=== PATIENT | female | born 1975 | race African-American/Black ===

== ENCOUNTER 2020-02-05 08:30 | Inpatient (IN) | payer OTHER ==
[~2020-02-05] VITALS: Ht 170.2 cm; Wt 162.3 kg
--- NOTE | 2020-02-05 12:05 | EKG ---
[facility] [address] [place] [address] Signed Sinus tachycardia Nonspecific T wave abnormality Prolonged QT Abnormal ECG No previous ECGs available Confirmed by ARLETTE GREWAL DO ([id number]) on 02/05/2020 12:04:50 PM Electronically Signed By: ARLETTE GREWAL DO 02/05/20 1205 PATIENT NAME: YISSEL TRUONG Electrocardiogram DATE OF : 73 PHYSICIAN: ARLETTE GREWAL DO REPORT #: [id number] REPORT IS CONFIDENTIAL AND NOT TO BE RELEASED WITHOUT AUTHORIZATION
--- NOTE | 2020-02-05 15:32 | NUR ---
REPORT RECEIVED FROM ED RN PERI, PT WAS BROUGHT DOWN ON WHEELCHAIR WHILE ON OXYGEN VIA OXYMASK WITH BELONGINGS. DURING TRANSFER TO WHEELCHAIR PT SPO2 DECREASED TO 66% AND OXYGEN HAD TO BE TEMPORARILY INCREASED. PT ARRIVED TO CCU AWAKE AND ALERT WITH SOME DYSPNEA. PT WAS ABLE TO GET UP FROM WHEELCHAIR WITH MINOR ASSISTANCE AND WALK OVER TO CCU BED AND SIT AND REPOSITION ON IT. OXYGEN WAS INC PRIOR TO 10L SO NO DESATURATION OCCURED. PT NO LAYING IN BED, IV FLUIDS INFUSING ORDERED, ORDERED TYLENOL ADMINISTERED. PT CHEST PAIN FROM BREATHING HAS DEC FROM 8 TO 5 DURING THE CCU ADMISSION PROCESS. PT NOW EATING ORDERED LUNCH SLOWLY DUE TO PAIN IN STOMACH. 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 PT HOWEVER STATED THAT SHE NEVER TOOK HER PRESCRIBED MEDICATIONS FOR HER STOMACH ULCER. PT REPORTS NO FURTHER NEEDS AT THIS TIME AND IS EATING WHILE ON 2L NC. WILL CONTINUE PLAN OF CARE.
--- NOTE | 2020-02-05 16:39 | NUR ---
PATIENT HELPED UP TO BEDSIDE COMMODE TO VOID. PT GIVEN NEW PAD FOR HER UNDERWEAR SHE IS ON HER MENSES. PT VOIDS 400 ML OF DARK, BLOODY, FOUL SMELLING URINE. UA SENT TO LAB AFTER DISCUSSING WITH DR. HUMPHRIES. PT SHORT OF BREATH WITH THIS ACTIVITY AND COACHED THROUGH THE LABORED BREATHING. PT BACK TO BED AND NOW RESTING. PT'S SKIN COLOR NOTED TO BE PALE AND HER GUMS NOTED TO BE PALE IN APPEARANCE ALSO. PT GIVEN MENU FOR DINNER. CONTINUE TO MONITOR.
--- NOTE | 2020-02-05 17:22 | NUR ---
PT LAYING IN BED WATHCING TV. RESPIRATIONS STILL LABORED BUT PT REPORTS NO PAIN. PT EDUCATED ON INCENTIVE SPIROMETER AND PT WAS ABLE TO USE IT CORRECTLY. DINNER ORDERED FOR PT. PT REPORTS NO FURTHER NEEDS AT THIS TIME, WILL CONTINUE PLAN OF CARE.
--- NOTE | 2020-02-05 18:21 | NUR ---
PT LAYING IN BED TALKING TO SON ON PHONE. PT'S BLOOD WAS DRAWN FOR LABS. PT REPORTS NO FURTHER NEEDS AT THIS TIME WHEN ASKED. WILL CONTINUE PLAN OF CARE.
--- NOTE | 2020-02-05 21:00 | NUR ---
AWAKE WATCHING TV. AT REST CHEST DISCOMFORT IS 3/10. SCHEDULED TYLENOL PO GIVEN. NO CALF PAIN AT THIS TIME. WHEN UP TO BSC TO VOID AND DO [facility] CARE PT BECAME SOB AND HAD INCREASED CHEST PAIN THAT GOT BETTER WITH REST. RT CALF IS FIRM TO TOUCH, NO INCREASED WARMTH AT SITE. PT ON MENSES, PT ASKED TO INFORM STAFF IF BLEEDING INCREASES FROM NORMAL PT IS ON ANTICOAGULANTS. HS CARE DONE AND READY FOR REST.
--- NOTE | 2020-02-05 23:05 | NUR ---
IS SLEEPING AT THIS TIME.
--- NOTE | 2020-02-06 00:14 | NUR ---
AWAKE BRIEFLY FOR ASSESSMENT. BACK TO SLEEP.
--- NOTE | 2020-02-06 00:30 | NUR ---
REPORT RECEIVED FROM FLORECITA COOK. PT RESTING IN BED WITH EYES CLOSED, RESP EVEN AND UNLABORED RR 12, HR 80'S.
--- NOTE | 2020-02-06 02:18 | NUR ---
DR HUMPHRIES ON UNIT, UPDATED REGARDING LOW URINE OUTPUT, ORDER TO CONT TO MONITOR FOR THE NEXT FEW HOURS AND EVALUATE LABS IN AM.
--- NOTE | 2020-02-06 02:19 | NUR ---
PT CONT TO SLEEP, HR 80, SPO2 99% ON 2L/NC RR 24.
--- NOTE | 2020-02-06 05:40 | NUR ---
LAB IN TO DRAW
--- NOTE | 2020-02-06 05:50 | NUR ---
PT UP TO BSC TO VOID AND HAD SMALL BROWN FORMED STOOL, WAS ABLE TO VOID 150ML RED URINE, STATES THIS IS DAY 4 OF HER MENSES. SAT ON COMMODE APPROX 20 MINUTES. HR UP TO 110 WHILE UP, THEN ONCE BACK RESTING IN BED HR DOWN TO 75. BECAME SOB WITH EXERTION, ONLY ABLE TO TALK IN SHORT SENTENCES SPO2 REMAINED HIGH NINETIES DURING THIS TIME. ALSO C/O CHEST PAIN WHILE MOVING, ASKED IF IT WAS ASSOCIATED WITH RESPIRATIONS OR IF IT WAS A STEADY PAIN AND SHE STATED "BOTH".
--- NOTE | 2020-02-06 07:06 | NUR ---
US IN FOR ECHO
--- NOTE | 2020-02-06 07:46 | NUR ---
REPORT RECEIVED FROM NIGHTSHIFT RN, CARE OF PT RESUMED, WILL CONTINUE PLAN OF CARE.
--- NOTE | 2020-02-06 08:00 | NUR ---
In and spoke with Gladis. 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 She states she currently does not have job, was training, she does not have insurance, and does not qualify for medicaid. She states she has $200 total. She would like to return to [facility]. She states her family do not have the funds to pick her up. Discussed I will check to see if we can find funding to return her to [place]. I will follow up with her when I have any answers. Called and spoke with Rosenda Grier and requested she assist pt to fill out Low Income paper work. Spoke with Dr. Thomas, and she does not feel it is safe for Gladis to fly. Checked [employer]tra[employer] and [employer] schedules. I feel it would be best to use Amtrak, as pt will be able to get up and walk to prevent new embolisms.
--- NOTE | 2020-02-06 08:26 | NUR ---
DR. HUMPHRIES IN ROOM TO EVALUATE PATIENT. PATIENT TEARFUL WE DISCUSS HER CONDITION AND PATIENT STATES, "I JUST DIDN'T REALIZE I WAS THAT SICK YESTERDAY." DISCUSSING WITH DR. HUMPHRIES THE POTENTIAL OF PATIENT NEEDING BLOOD. PT STILL SHORT OF BREATH WITH ANY ACTIVITY, AND HAS PAIN IN HER CHEST WHEN SHE TAKES DEEP BREATHS. PT REPORTS THAT SHE WAS IN [facility] IN [place], [place] ON 01/19. WILL TRY AND GET LAB RESULTS FROM THIS HOSPITAL STAY. PT NOW SITTING UP EATING HER BREAKFAST. CALL LIGHT WITHIN REACH. IVF CONTINUE AT 125 ML/HR. PT REMAINS ON 2 L NC. CONTINUE TO MONITOR.
--- NOTE | 2020-02-06 09:49 | NUR ---
PT LAYIING IN BED WATCHING TV. CASE MANAGEMENT CURRENTLY IN DISCUSSING PLAN OF CARE WITH PT. IV FLUIDS INFUSING ORDERED. PT CURRENTLY ON 2L O2 NC, SPO2 AT 100, RR 16. PT STATES SHE IS SHORT OF BREATH NOW AFTER SPEAKING WITH CASE MANAGEMENT. PT REPORTS PAIN IN R SHOULDER AT A 5/10. ORDERED TYLENOL WAS GIVEN. PT REPORTS NO FURTHER NEEDS AT THIS TIME. BED IN LOWEST POSITION, CALL LIGHT WITHIN REACH, WILL CONTINUE PLAN OF CARE.
--- NOTE | 2020-02-06 10:00 | NUR ---
Spoke with Dr. Thomas, she feels it would be best for pt to stay here a few days and stabilize on an anticoagulant. Discussed cost and also follow up. Pt does not have a pcp in [place] She gave me the names of two [facility]: [facility] and [facility] [phone]. I was able to find the phone numbers. I will call later to attempt to find a pcp to follow her labs on dc.
--- NOTE | 2020-02-06 10:20 | NUR ---
MED REC COMPLETE
--- NOTE | 2020-02-06 11:44 | NUR ---
PT IN BED, HIGH FOWLERS, WATCHING TV. PT STATED SHE WAS STILL HAVING PAIN UNDER HER LEFT ARMPIT AND ON THE BACK. PAIN WAS REPORTED 7/10. PRN OXYCODONE 5MG WAS GIVEN. PT THEN STATED SHE HAD TO USE THE BEDSIDE COMMODE. PT WAS ABLE TO GET UP AND TAKE A FEW STEPS OVER TO BSC. PT WAS ALSO ABLE TO GET BACK INTO THE BED WITHOUT ASSISTANCE. PT REPORTED NO LIGHTHEADEDNESS AT THAT TIME BUT WAS SHORT OF BREATH. HR WAS IN THE 120'S WHILE GETTING ON AND OFF COMMODE. PT NOW LAYING IN BED WATCHING TV. PT REPORTS NO FURTHER NEEDS AT THIS TIME, IVF INFUSING ORDERED. WILL CONTINUE PLAN OF CARE.
--- NOTE | 2020-02-06 12:26 | NUR ---
PT EATING LUNCH AND TALKING ON PHONE. ORDERED SUB-Q MEDICATION ADMINISTERED, PT TOLERATED IT WELL. IV INFUSING AT ORDERED RATE. PT REPORTS NO PAIN AND NO FURTHER NEEDS WHEN ASKED. WILL CONTINUE PLAN OF CARE
--- NOTE | 2020-02-06 14:30 | NUR ---
Called and spoke with Anna Villa, PT. Services. Requested funding for an [employer] tickets. We both stated concern for pt to travel alone. She suggested we maybe able to fly her son to [place] and have him take the train to [place] with pt. She will let me know tomorrow about funding. Amtrak from [place] is approx $390 pp. Pt will need to take amtrak from [place] or [place] from [place] to [place]. I will cont. to work on this.
--- NOTE | 2020-02-06 14:42 | NUR ---
PT CURRENTLY LAYING IN BED TALKING ON PHONE. PT REPORTS NO PAIN AT THIS TIME AND DOES NOT FEEL SHORT OF BREATH. PT ALSO STATES THAT SHE HAS BEEN USING HER INCENTIVE SPIROMETER ON HER OWN. PT REPORTS NO FURTHER NEEDS WHEN ASKED. WILL CONTINUE PLAN OF CARE.
--- NOTE | 2020-02-06 15:10 | NUR ---
Pt does not have a pcp in [place]. [facility] [phone]. I was able to find the phone number. I attempted to call, they are closed due to the time difference. Will try again tomorrow.
--- NOTE | 2020-02-06 15:11 | NUR ---
Pt. sat at the side of her bed and did a complete bedbath. I assisted. new gown was put on.
--- NOTE | 2020-02-06 15:53 | NUR ---
PT LAYING IN BED WATCHING TV AND ON PHONE. PT GIVEN ORDERED PO MEDICATIONS (SEE MAR). PT REPORTS THAT SHE HAD SHORTNESS OF BREATH WHEN SHE WAS CLEANING HERSELF WITH BODY WIPES. PT ALSO STATED SHE HAD SOME PAIN IN HER RIGHT CALF/NGUYEN WHEN SHE STOOD. PT STATES THE AREA IS NOT PAINFUL WHEN RESTING ONLY WHEN STANDING AND WHEN PALPATED. PT REPORTS NO OTHER AREAS OF PAIN. IV FLUIDS INFUSING AT ORDERED RATE, PT REPORTS NO FURTHER NEEDS AT THIS TIME. BED IN LOWEST POSITION CALL LIGHT ON BEDSIDED TABLE WITHIN REACH, WILL CONTINUE PLAN OF CARE.
--- NOTE | 2020-02-06 16:48 | NUR ---
PT LAYING IN BED TALKING ON PHONE, NEW BAG OF IV FLUIDS STARTED. PT STATES SHE HAS NO PAIN AT THIS TIME. PT HAD NO FURTHER NEEDS WHEN ASKED, WILL CONTINUE PLAN OF CARE.
--- NOTE | 2020-02-06 18:54 | PATH ---
[facility] [address] [place], [place] [address] Signed ORDERING PHYSICIAN: Joey Blum MD PATIENT NAME: YISSEL TRUONG GENDER: F : 1975 Prior History: No cases found. SPECIMEN(S): No Source Given CLINICAL HISTORY: Routine Pap Smear MOLECULAR PATHOLOGY RESULTS: SARS-CoV-2 Not Detected ADDITIONAL NOTES.: The [place] Fusion SARS-CoV-2 Assay is a multiplex real-time PCR (RT-PCR) in vitro diagnostic test intended for the qualitative detection of RNA from SARS-CoV-2 from individuals who meet COVID-19 clinical and/or epidemiological criteria. In general, SARS-CoV-2 RNA can be detected during the acute phase of infection. Positive results indicate the presence of SARS-CoV-2 RNA. Clinical correlation with patient history and other diagnostic information is necessary to determine patient infection status. Positive results do not rule out bacterial infection or co-infection with other viruses. Negative results do not preclude SARS-CoV-2 infection and should not be used as the sole basis for patient management decisions. Negative results must be combined with other clinical observations, patient history, and epidemiological information. The [place] Fusion SARS-CoV-2 Assay is not yet approved or cleared by the [place] FDA. When there are no FDA-approved or cleared tests available, and other criteria are met, FDA can make tests available under an emergency access mechanism called an Emergency Use Authorization (EUA). The EUA for this test is supported by the [place] of Health and Human Service's (HHS's) declaration that circumstances exist to justify the emergency use of in vitro diagnostics for the detection and/or diagnosis of the virus that causes COVID-19. This EUA will remain in effect for the duration of the COVID-19 declaration justifying emergency of IVDs, unless it is terminated or PATIENT NAME: YISSEL RTUONG PATHOLOGY DATE OF : 73 REPORT #: [id number] PHYSICIAN: JOHNY PATHOLOGY PCP: NO PRIMARY CARE PHYSICIAN REPORT IS CONFIDENTIAL AND NOT TO BE RELEASED WITHOUT AUTHORIZATION [facility] [address] [place], [place] [address] Signed revoked by FDA, after which the test may no longer be used. The [place] Fusion SARS-CoV-2 Assay is for use only under EUA in US laboratories certified under the Clinical Laboratory Improvement Amendments of 1988 (CLIA) to perform high complexity tests. [employer] is certified under CLIA to perform high complexity clinical laboratory testing. PERFORMING LABORATORY.: Molecular testing was performed by [facility] [place] [address] (Day Care Aide: Masood Bernabe D.O.; CLIA#: [id number]) Diagnostician: System Interface Pathologist Electronically Signed 02/06/2020 Copies: ~ PATIENT NAME: YISSEL TRUONG PATHOLOGY DATE OF : [birth year] REPORT #: [id number] PHYSICIAN: JOHNY PENNINGTON PCP: NO PRIMARY CARE PHYSICIAN REPORT IS CONFIDENTIAL AND NOT TO BE RELEASED WITHOUT AUTHORIZATION
--- NOTE | 2020-02-06 19:03 | NUR ---
PT GIVEN PRN OXYCODONE DUE TO SHOULDER/CHEST PAIN 5/10. PT THEN NEEDED TO VOID, PT. ABLE TO GET UP TO BEDSIDE COMMODE AND BACK TO BED WITHOUT ASSISTANCE. HR WAS IN THE 120'S SPO2 AT 93% WHILE ON 2L O2 NC. PT REPORTED NO LIGHTHEADEDNESS BUT DID FEEL SOB. WHEN GETTING BACK TO BED PT STATED R CALF FEEL VERY PAINFUL 8/10 IF THE LEG WAS TIGHT. PT THEN HAD A MOMENT OF PAIN LASTING APPROXIMATELY 5 MINUTES IN WHICH SHE WAS GUIDED THROUGH SOME DEEP BREATHING IT WAS VERY PAINFUL. PT NOW LAYING IN BED WATCHING TV. PT STATED THAT PAIN HAS DECREASED. IVF RESTARTED. PT REPORTS NO FURTHER NEEDS AT THIS TIME. WILL CONTINUE PLAN OF CARE.
--- NOTE | 2020-02-06 19:30 | NUR ---
REPORT RECEIVED FROM AUGIE COOK.
--- NOTE | 2020-02-06 19:45 | NUR ---
IN TO CHECK ON PT AND DO ASSESSMENT. STATES PAIN IN RIGHT CALF IS DECREASING SINCE RESTING IT UP IN BED. DENIES CHEST PAIN AT THIS TIME. WHEN ASKED HOW HER BREATHING FEELS SHE STATES "A LOT BETTER", CURRENTLY ABLE TO TALK IN COMPLETE SENTENCES WITH MINIMAL SOB, 2L/O2 IN PLACE AND O2 SATS REMAIN 99%. RESTING HR 86. PLAN FOR THE NIGHT DISCUSSED WITH PT, SHE HAS NO REQUESTS AT THIS TIME.
--- NOTE | 2020-02-06 22:29 | NUR ---
PT SLEEPINGS, AWAKENS EASILY, PRN PAIN MEDS GIVEN, DENIES FURTHER NEEDS.
--- NOTE | 2020-02-07 04:45 | NUR ---
PT CONT TO SLEEP, RESP EVEN AND UNLABORED
--- NOTE | 2020-02-07 04:50 | NUR ---
UP TO BSC TO VOID, BACK TO BED. LESS SOB WITH ACTIVITY THAN LAST NIGHT. STILL VERY PAINFUL AT RIGHT CALF WITH MOVEMENT, PRN OXYCODONE GIVEN. PTS URINE BRIGHT RED. LAB IN TO DRAW.
--- NOTE | 2020-02-07 07:39 | NUR ---
REPORT RECEIVED FROM NIGHTSHIFT RN, WILL CONTINUE PLAN OF CARE.
--- NOTE | 2020-02-07 08:01 | NUR ---
fresh water given. room picked up. vitals taken. no other needs at this time.
--- NOTE | 2020-02-07 09:13 | NUR ---
PT LAYING IN BED WATCHING TV, PT IS ALERT AND ORIENTED. ORDERED MEDICATIONS ADMINISTERED. PT REPORTS NO PAIN AND NO SHORTNESS OF BREATH. PT STATES THAT SHE DOES GET RIGHT CALF PAIN WHEN STANDING TO USE BSC AND FEELS SHORT OF BREATH WITH ACTIVITY. PT NOW LAYING IN BED EATING BREAKFAST AND WATCHING TV. PT REPORTS NO FURTHER NEEDS AT THIS TIME. PT SALINE LOCKED, ON 2L O2, SPO2 100%. WILL CONTINUE PLAN OF CARE.
--- NOTE | 2020-02-07 12:00 | NUR ---
PT NOTIFIED OF TRANSFER. PT WAS SLEEPING IN BED AT THAT TIME. REPORT GIVEN TO NOAH HENDERSON. PT WAS TRANSFERRED OVER VIA HOSPITAL BED WITH BELONGINGS INTO ROOM 107.
--- NOTE | 2020-02-07 12:36 | NUR ---
PT ARRIVED FROM CCU ALERT AND ORIENTED. NO DISTRESS REPORTS PAIN IS WELL MANAGED AT THIS TIME. PT ORDERED DINNER AT THIS TIME.
--- NOTE | 2020-02-07 13:27 | NUR ---
PT ON ROOM AIR TRIAL, 100% OXYGEN SATURATION ON ROOM AIR AT THIS TIME.
--- NOTE | 2020-02-07 13:47 | NUR ---
PATIENT IN BED FACTIMING FAMILY. CALL LIGHT IN REACH. NO FURTHER NEEDS AT THIS TIME.,
--- NOTE | 2020-02-07 14:30 | NUR ---
Began calling low income and free clinics in [facility]. After several calls I was able to reach [facility] in [place] near [facility] [phone] and speak with Myra. She was able to schedule Gladis del rio appt to establish care with Dr. Major for @ 0830 am. Address [place], [address] [place], [place] [address] [address]. She needs to arrive 15 min early for her appt. They also have an ER and pt may walk in if need arises.
--- NOTE | 2020-02-07 15:06 | NUR ---
pt up to bedside commode, one person assist.
--- NOTE | 2020-02-07 15:38 | NUR ---
PT REPORTS PAIN 10/10 AFTER STEPPING ON RIGHT LEG TO GET UP TO COMMODE. PT GIVEN PRN OXYCODONE 10MG WITH SCHEDULED TYLENOL.
--- NOTE | 2020-02-07 16:03 | NUR ---
PT TRANSFERED FROM CCU. SHE IS SBA TO BEDSIDE COMMODE, PAIN SEVERE WHEN SHE BEARS WEIGHT ON RIGHT LEG. HAD BM, VOIDING WELL, ON MENSES. TOLERATING DIET WELL. COMPLICATED DISCHARGE PLAN. PT ON ROOM AIR AT THIS TIME. SHE DEVELOPES SOB WITH ACTIVITY, RECOVERS QUICKLY.
--- NOTE | 2020-02-07 16:36 | NUR ---
Taking over care of this pt. In room to assess pt and introduce myself. Pt alert and pleasant upon greeting. Pt sitting up in bed, watching TV. Assessment complete, VSS, see charting for details. Pt reports 7-8/10 pain in her right leg, no nausea. Pt reports having a BM today. Pt requests a shower. Table and call light within reach.
--- NOTE | 2020-02-07 17:04 | NUR ---
THIS RN TO ROOM TO CHECK ON PT. PT REPORTS PAIN IS WELL CONTROLED AT THIS TIME. PT TOLERATING ROOM AIR WIHT O2 SATURATIONS OF 98% ON ROOM AIR. PT REPORTS SHORTNESS OF BREATH WITH ANY ACTIVITY CONTINUES. PT REQUESTS TO GET UP TO SHOWER. PT PLACED ON 2L O2 BY NC FOR SHOWERING TO ASSIST WITH SHORTNESS OF BREATH. PT SHOWERING INDEPENDANTLY. LINENS CHANGED. 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 NO ADDIITONAL REQUESTS OR COMPLAINTS AT THIS TIME. CALL LIGHT WITHIN REACH.
--- NOTE | 2020-02-07 18:55 | NUR ---
PATIENT IN BED WATCHING TV. FRESH WATER GIVEN. CALL LIGHT IN REACH. NO FURTHER NEEDS AT THIS TIME.
--- NOTE | 2020-02-07 19:00 | NUR ---
THIS RN TO ROOM WITH MAI, RN'S FOR CIGARETTE MACHINE FILLER REPORT. PT REQUEST ASSISTANCE UP TO RESTROOM. 1 PERSON ASSIST UP TO RESTROOM. ATTEMPTED CLEAN CATCH COLLECTION, HOWEVER PT IS ON HER MENSES. URINE COLLECTED. MAI PLANNING TO CONTACT MD TO DETERMIN IF SAMPLE SHOULD BE SENT. SAMPLE HELD AT THIS TIME, MAI TO FOLLOW UP. PT BACK TO BED. PT DESATURATES TO 85% WITH AMBULATION. PT PLACED ON 1L O2 BY RI AND RETURNS TO 99%. PT RESTING IN BED. APPLE JUICE PROVIDED PER PT REQUEST. NO ADDITIONAL REQUESTS OR COMPLAINTS. FULL REPORT GIVEN TO ROBERTO STACK. CALL [facility] WITHIN REACH.
--- NOTE | 2020-02-07 19:17 | NUR ---
REPORT RECEIVED FROM FÉLIX COOK AND ALLISON RN. PATIENT UP IN BR TO VOID, BACK TO BED, SPO2 WITH EXERTION AT 79%. 2L O2 NC PLACED, QUICKLY RETURNED TO 100%. PATIENT STATES NO NEEDS AT THIS TIME. CALL LIGHT IN REACH, WILL CONTINUE TO MONITOR.
--- NOTE | 2020-02-07 20:34 | NUR ---
SCHEDULED MEDICATIONS ADMINISTERED, ASSESSMENT COMPLETE, VS AND I/O'S COMPLETE. PATIENT RATES PAIN AT 0/10 AT THIS TIME. VSS, A+O, LUNG SOUNDS CLEAR, HRR, BOWEL TONES HYPOACTIVE. 2 IV SITES FLUSHED WNL. CALL LIGHT IN REACH, NO NEEDS AT THIS TIME. WILL CONTINUE TO MONITOR.
--- NOTE | 2020-02-07 22:40 | NUR ---
CHECKED ON PATIENT TO REASSESS PAIN/NEEDS. PT SITTING AT EDGE OF BED, STATES NEEDING TO GO TO BR TO VOID. SBA TO BR, 200ML VOID. AMBULATED BACK TO BED AND STATES INCREASING, SEVERE PAIN IN R LOWER LEG. SPO2 AT 82%, PLACED ON 2L O2 NC, QUICKLY RETURNED TO 100%. PATIENT STATES 10/10 PAIN. PRN 10 MG OXYCODONE ADMINISTERED, MADE PLAN WITH PT FOR PRN MEDICATIONS FOR FUTURE PAIN CONTROL. REPOSITIONED IN BED, WATER REFRESHED, CALL LIGHT IN REACH. PT STATES SHE WILL CALL WITH NEEDS. WILL CONTINUE TO MONITOR.
--- NOTE | 2020-02-08 00:05 | NUR ---
ROUNDED ON PATIENT, LAYING IN BED WITH EYES CLOSED, LIGHTS OFF. BREATHING EVEN, UNLABORED. CALL LIGHT WITHIN REACH, NO APPARENT NEEDS AT THIS TIME. WILL CONTINUE TO MONITOR AND ASSESS PAIN.
--- NOTE | 2020-02-08 01:05 | NUR ---
CHECKED ON PATIENT TO REASSESS PAIN, LAYING IN BED WITH EYES CLOSED, BREATHING EVEN AND UNLABORED. LIGHTS OFF. CALL LIGHT IN REACH. WILL CONTINUE TO MONITOR.
--- NOTE | 2020-02-08 02:24 | NUR ---
VITALS ASSESSED, ASSESSMENT COMPLETE. PT UP TO BR, TOLERATED AMBULATION WELL. DAUGHTER IN ROOM. PATIENT REPORTS THAT SHE IS HAVING "NO PAIN" AT THIS TIME. CALL LIGHT IN REACH, WILL CONTINUE TO MONITOR.
--- NOTE | 2020-02-08 03:15 | NUR ---
ROUNDED ON PATIENT. IN BED, HOB ELEVATED, EYES CLOSED, LIGHTS OFF. BREATHING EVEN AND UNLABORED. NO APPARENT NEEDS AT THIS TIME. CALL LIGHT IN REACH. WILL CONTINUE TO ASSESS.
--- NOTE | 2020-02-08 04:25 | NUR ---
CALL LIGHT ANSWERED, PT STATES NEED TO VOID. AMBULATED TO BR WITH SBA, O2 IN PLACE WHILE AMBULATING, PT ABLE TO MAINTAIN SPO2 IN 88-99% RANGE WITH NC IN PLACE. PRN PAIN MEDICATION ADMINISTERED FOR 8/10 PAIN TO R LEG. DISCUSSED WITH PT PLAN OF CARE REGARDING PRN MEDS. ASSESSMENT COMPLETE, VITALS AND I/O'S COMPLETE. CALL LIGHT IN REACH, WILL CONTINUE TO MONITOR.
--- NOTE | 2020-02-08 04:55 | NUR ---
PRN PAIN MEDICATION ADMINISTERED x2 THIS SHIFT FOR 8-01/13 REPORTED PAIN IN R LEG D/T DVT. PT SBA TO BR TO VOID, UA COLLECTED THIS MORNING. 1L O2 VIA NC PLACED WITH EXERTION, MAINTAINS SPO2 IN 90-100% RANGE WHILE AMBULATING. SEVERE TENDERNESS AND PAIN IN R LEG, SWELLING NOTED. PT REPORTS DIFFICULT TO TAKE FULL, DEEP BREATH AT TIMES AFTER AMBULATING. ENCOURAGED USE OF CALL LIGHT, DISCUSSED PRN PAIN MEDS AND PLAN OF CARE. PT HAD BM AT 0430, ON MENSES, VOIDING SLIGHTLY INADEQUATE. COMPLICATED DC PLAN.
--- NOTE | 2020-02-08 09:31 | NUR ---
Oxycodone 10mg po admin for reports of 8/10 right leg pain.
--- NOTE | 2020-02-08 09:35 | NUR ---
PATIENT PLEASANT THIS MORNING. SHE FINISHED BREAKFAST AND IS WATCHING TV. SHE STARTED ON COUMADIN/WARFARIN SO I GAVE HER SOME EDUCATION ALONG WITH A HANDOUT ON HIGH VITAMIN K FOODS TO BE AWARE OF. SHE LIKES ALL OF THEM BUT DOES NOT EAT THEM CONSISTENTLY SO I TOLD HER TO HAVE A SMALL PORTION WHEN SHE DOES EAT THEM BECAUSE TOO MUCH COULD THROW HER PT/INR OFF. SHE DIDN'T KNOW ANY OF THIS INFO PRIOR. HANDOUT PROVIDED. SHE DOES NOT TAKE A MVI DAILY NOR DOES SHE TAKE FISH OIL. NO OTHER QUESTIONS AT THIS TIME. MY NAME AND OFFICE # PROVIDED IN CASE FURTHER QUESTIONS ARISE. WILL CONTINUE TO MONITOR.
--- NOTE | 2020-02-08 09:45 | NUR ---
PATIENT AWAKE IN BED, VITALS AND I&OS CHARTED. SBA TO BATHROOM, WILL CALL WHEN READY.
--- NOTE | 2020-02-08 10:53 | NUR ---
Patient in bed resting, alert and oriented x4. Pt reports shortness of breath with ambulation. 2l Oxygen per nc in use as needed for sob. Patient reports pain in right lower leg; warm to touch; good pedal pulse noted, cms intact. Patient tolerated breakfast well, denies nausea. Encouraged patient to CDB, ISS at bedside and in use. Call light within reach. Patient has no needs at this time. Personal supplies and call light within reach.
[2020-02-08] MEDS ORDERED: XARELTO10 MG PO (12:25)
[2020-02-08] MEDS ORDERED: XARELTO20 MG PO (12:26)
--- NOTE | 2020-02-08 12:47 | NUR ---
Patient in bed eating lunch at this time. Pt reports she is a bit short of breath; applied 2l of oxygen per nc. Oxgen saturations is 96%. Pt denies chest pain. No needs at this time. Personal supplies and call light within reach.
--- NOTE | 2020-02-08 13:38 | NUR ---
PT IS SITTING UP IN BED, ALERT AND ORIENTED. PT BEGAN TO TELL ME HER STORY. SHE DID SHE BEGAN TO GET EMOTIONAL. BEGAN TO DEBRIEF PT. 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 SHE IS HERE FROM [place], UNEMPLOYED AND IN A BAD WAY. GAVE A Tori RODASPOST. WILL FOLLOW NEEEDED
--- NOTE | 2020-02-08 13:50 | NUR ---
Spoke with Malinda Farris from [facility]. They are national and have an office in [place], [place]. If needed they could supply a concentrator for pt to discharge to [place].
--- NOTE | 2020-02-08 13:58 | NUR ---
PATIENT AWKAE IN BED, VITALS AND I&OS CHARTED. CALL LIGHT IN REACH, STUDENT REJI CHECKED RESPERATIONS 3X. NO OTHER NEEDS AT THIS TIME
--- NOTE | 2020-02-08 15:44 | NUR ---
Oxycodone 10mg po admin for reports of 6/10 right leg pain.
--- NOTE | 2020-02-08 15:49 | NUR ---
Patient in bed a&ox4. Patient denies sob and chest pain at rest. Patient is on room air, respirations even and non labored.
--- NOTE | 2020-02-08 15:59 | NUR ---
Xarelto Starter pack RX filled and ready at [facility] with $0 copay
--- NOTE | 2020-02-08 17:51 | NUR ---
A&OX4. PRN OXYCODONE. SBA TO BR WITH 2L OXYGEN FOR SOB WITH EXERTION. PATIENT TOLERATING DIET WELL. CALLS STAFF APPROPRIATELY. DARON STARTED TODAY. RIGHT LEG WARM TO TOUCH AND PAINFUL D/T DVT. OXYGEN MID TO HIGH 90'S., RESP 16-22PER MIN. ON MENSES. BLOOD TRANSFUSION HELD.
--- NOTE | 2020-02-08 17:54 | NUR ---
PATIENT AWAKE IN BED, EATING DINNER, VITALS AND I&OS CHARTED. CALL LIGHT AND PERSONAL ITEMS WITHIN REACH, NO OTHER NEEDS AT THIS TIME
--- NOTE | 2020-02-08 19:05 | NUR ---
SHIFT REPORT RECIEVED BY RN. PT IS LYING DOWN WITH EYES CLOSED. WHITE BOARD UPDATED. NO S/S OF SOB, RR WITHIN NORMAL LIMITS. CALL LIGHT WITHIN REACH. NO CONCERNS AT THIS TIME.
--- NOTE | 2020-02-08 22:22 | NUR ---
PT CALLED FOR ASSISTANCE TO THE RESTROOM. SBA W/2LNC TO RESTROOM. SHE WILL CALL WHEN SHE IS DONE.
--- NOTE | 2020-02-08 23:01 | NUR ---
PT LYING IN BED, REPORTS SOB WITH EXERTION. HAS 2 L OF NC AT 100% O2 SAT. PT C/O OF ITCHING AND CALF TENDERNESS TO RLE. WEAK PEDAL PULSES, CAP REFILL WITHIN NORMAL LIMITS. SKIN WARM TO THE TOUCH. PRN PAIN MEDICATIONS GIVEN. SCHEDULED MEDS GIVEN. ASSESSMENT COMPLETE. CALL LIGHT WITHIN REACH. NO FURTHER CONCERNS AT THIS TIME.
--- NOTE | 2020-02-08 23:48 | NUR ---
PT RESTING QUIETLY IN BED WITH EYS CLOSED, RR 16 ON RA. NO DISTRESS NOTED. PT APPEARS COMFORTABLE, CALL LIGHT IN REACH.
--- NOTE | 2020-02-09 01:27 | NUR ---
PT RESTING IN BED WITH EYES CLOSED. RESPIRATIONS EVEN AND UNLABORED, NO DISTRESS NOTED. CALL LIGHT IN REACH.
--- NOTE | 2020-02-09 03:15 | NUR ---
PT RESTING QUIELTY IN BED WITH EYES CLOSED, RESPIRATIONS EVEN AND UNLABORED. NO DISTRESS NOTED. CALL LIGHT IN REACH.
--- NOTE | 2020-02-09 04:45 | NUR ---
PT ASSISTED SBA TO BED, TO VOID. 2LNC IN PLACE. PT INSTRUCTED TO USE CALL LIGHT WHEN READY TO RETURN TO BED. PT VERBALIZED UNDERSTANDING.
--- NOTE | 2020-02-09 05:13 | NUR ---
ASSESSMENT COMPLETE, NO NEW CHANGES OR CONCERNS. VSS, PT ON RA. PAIN MEDICATION GIVEN FOR 8/10 PAIN IN RLE (SEE EMAR). PT REPORTS ITCHING TO RLE HAS IMPROVED. NO FURTHER NEEDS, CALL LIGHT IN REACH.
--- NOTE | 2020-02-09 07:06 | NUR ---
Report from Afia Ayoub RN. Patient sitting up in bed. Currently wearing O2 at this time. States she wears it to ambulate. Denies other needs at this time. Call light in reach, bed rails up X2.
--- NOTE | 2020-02-09 08:11 | NUR ---
Sitting up in bed. Denies needs at this time. Currently on room air. Denies pain. AM medications given, takes without difficulty. Assessment completed. Call light in reach, bed rails up X2.
--- NOTE | 2020-02-09 10:00 | NUR ---
Sitting up in bed. Patient getting ready to shower with staff assist to cover IV. States she is in no pain. Denies other needs.
--- NOTE | 2020-02-09 11:14 | NUR ---
Discussed in 829 IDT. Possible dc plan for Thursday of next week. Will search for Amtrak schedule for pt to return home Thursday or Thursday.
--- NOTE | 2020-02-09 12:20 | NUR ---
Patient sitting up in bed, eating lunch at this time. On room air. Denies needs at this time. Call light in reach, bed rails up X2.
--- NOTE | 2020-02-09 14:15 | NUR ---
Sitting up in bed. Call light in reach. Assessment completed. Patient denies pain and other needs at this time.
--- NOTE | 2020-02-09 14:31 | NUR ---
PT IS ALERT, ORIENTED AND WATCHING TV. HAD BRIEF MOMENT WITH PT, STILL TRYING TO PROCESS HER SITUATION. MARY LOU CM IN AND NEEDED TO VISIT WITH PT REGARDING TRANSPORTATION HOME. GAVE BLESSING, WILL FOLLOW NEEDED
--- NOTE | 2020-02-09 15:18 | NUR ---
Ambulating in hallway with PT. Shortness of breath with exertion. Currently on 2L/min O2 per NC.
--- NOTE | 2020-02-09 20:15 | NUR ---
PT HAS SOB WITH EXERTION ONLY. UPPER LOBES ARE CLEAR BUT VERY DIMINISHED IN THE BASES. RLE IS STILL HOT TO TOUCH AND HAS EDEMA PRESENT. PEDIS PULSES ARE +2. OVERALL NO NEW CONCERNS NOTED. WILL CONTINUE TO MONITOR.
--- NOTE | 2020-02-09 21:46 | NUR ---
IN RM TO TAKE VITALS, I&Os DONE, FRESH ICE WATER GIVEN, EMPTY PLATE TAKEN, NO FURTHER NEEDS AT THIS TIME
--- NOTE | 2020-02-09 23:03 | NUR ---
PT AT THIS TIME IS RESTING IN BED.
--- NOTE | 2020-02-10 00:09 | NUR ---
PT IS AWAKE IN BED. PT HAS NO NEEDS AT THIS TIME.
--- NOTE | 2020-02-10 01:39 | NUR ---
PT RESTING IN BED. NO NEW CONCERNS NOTED.
--- NOTE | 2020-02-10 03:21 | NUR ---
pt called, up to the toilet, pt now bk to bed, pt needing to catch breath, 2lnc in place, 100% O2, pt is starting to fell better, will be informing the primary rn, fresh ice water given, no further needs at this time
--- NOTE | 2020-02-10 04:29 | NUR ---
PT AT THIS TIME IS SLEEPING AGAIN. NO NEW CONCERNS NOTED.
--- NOTE | 2020-02-10 05:23 | NUR ---
VITALS AND I&OS DONE AND CHARTED. GARBAGES EMPTIED. BEDSIDE TABLE AND CALL LIGHT IN REACH.
--- NOTE | 2020-02-10 06:21 | NUR ---
PT OVERALL HAD AN UNEVENTFUL NIGHT. PT STILL HAS SOB WITH EXERSION PRESENT. RIGHT LOWER LEG IS STILL HOT TO TOUCH AND HAS EDMA AND PAIN PRSENT. PT DID HOWEVER NOT WANT ANY PRN PAIN MEDICATION THIS SHIFT. PT ALSO STILL HAS HER MENSES. URINE OUTPUT IS ADEQUATE, V/S ARE WDL. UPPER LOBES ARE CLEAR, LOWER LOBES ARE DIMINISHED.
--- NOTE | 2020-02-10 07:00 | NUR ---
Report from Shashi Schafer RN. Patient sitting up in bed. Denies needs at this time. Call light in reach, bed rails up X2.
--- NOTE | 2020-02-10 08:59 | NUR ---
Patient sitting up in bed. AM medications given. Currently on room air. Denies any pain. Ice provided. Denies needs at this time. Call light in reach, bed rails up X2.
--- NOTE | 2020-02-10 10:23 | NUR ---
PATIENT DRESSED IN PERSONAL CLOTHES AND AWAKE IN BED. VITALS AND I&OS CHARTED, NO OTHER NEEDS AT THIS TIME
--- NOTE | 2020-02-10 11:17 | NUR ---
Sitting up in bed. Warm blanket provided. Denies other needs at this time. Call light in reach, bed rails up X2.
--- NOTE | 2020-02-10 11:30 | NUR ---
SPOKE WITH PATIENT IN ROOM. SHE STATES SHE HAS BEEN TALKING WITH FAMILY AND HER DAD IS GOING TO MAKE SURE HER SON ROCÍO GETS TO THE AIRPORT IN [place] TO FLY HERE NEXT WEEK. SHE GAVE ME HIS PERSONAL INFORMATION TO BOOK FLIGHT. PATIENT STATES SHE STILL HAS SIGNIFICANT PAIN IN LEG WHEN SHE GETS UP ON IT AND FEELS VERY SOB WITH EXERTION. DISCUSSED WE ARE HOPING SHE WON'T NEED OXYGEN AT DISCHARGE DUE TO LONG DISTANCE SHE WILL NEED TO TRAVEL. SHE AGREES WITH THIS. PATIENT VERY PLEASANT, VERY THANKFUL FOR THE HELP WITH HER UNFORTUNATE SITUATION.
--- NOTE | 2020-02-10 12:14 | NUR ---
JAD BARRETO HAS WORKED REALLY HARD ARRANGING TRANS HOME FOR PT AND GETTING HER SON TO HELP HER RETURN HOME. PT FEELING BETTER, MORE AWARE OF HER SITUATION. PT EXPRRESSED THANKS FOR DR HUMPHRIES HELP, GUIDANCE AND HONESTY. PT REQUESTED PRAYER, WILL CONTINUE TO FOLLOW NEEDED
--- NOTE | 2020-02-10 13:57 | NUR ---
Assessment completed. IV to RAC infiltrated and DC'd. Pressure applied to site and taped applied. Medication administered as prescribed. Takes without difficulty. Denies other needs at this time. Call light in reach, bed rails up X2.
--- NOTE | 2020-02-10 15:00 | NUR ---
CONFIRMED INFORMATION WITH PATIENT FOR SON TO BOOK FLIGHT. MADE SURE SON HAS LEGAL STATE PHOTO ID. SHE STATES HE DOES. DISCUSSED WITH HER PLANNED FLIGHT ARRANGEMENTS, SHE STATES AGREEMENT.
--- NOTE | 2020-02-10 17:38 | NUR ---
PATIENT AWAKE IN BED, EATING DINNER. VITALS AND I&OS CHARTED. CALL LIGHT IN REACH
--- NOTE | 2020-02-10 18:17 | NUR ---
Ambulates in hallway with PT. Pain controlled with scheduled medications. Remains alert and oriented. IV remains saline locked. O2 per NC at 2L/min with activity, room air at rest. Takes medications without difficulty.
--- NOTE | 2020-02-10 19:30 | NUR ---
V/S ARE WDL, UPPER LOBES ARE CLEAR, LOWER LOBES ARE DIMINISHED BUT DO HAVE MORE AIR MOVEMENT PRESENT THAN LAST NIGHT. RLE IS STILL WARM BUT LESS THAN LAST NIGHT, PEDIS PULSES +2, OVERALL STRENGTH IS BETTER ALSO. PT USES INSENTIVE SHANIQUA. PT STILL ON HER MENSES. NO NEW CONCERNS WERE NOTED.
--- NOTE | 2020-02-10 22:15 | NUR ---
PT IS RESTING IN BED AT THIS TIME.
--- NOTE | 2020-02-11 01:06 | NUR ---
PT IS SLEEPING AT THIS TIME. NO NEW CONCERNS WERE NOTED.
--- NOTE | 2020-02-11 02:48 | NUR ---
PER PT REQUEST I GAVE HER SOME FRESH ICE WATER. BEDSIDE TABLE AND CALL LIGHT IN REACH. PT NEEDS NOTHING MORE AT THIS TIME.
--- NOTE | 2020-02-11 04:34 | NUR ---
PT IS STILL SLEEPING AT THIS TIME.
--- NOTE | 2020-02-11 05:15 | NUR ---
PT OVERALL HAD AN UNEVENTFUL NIGHT UNTIL JUST NOW. PT NOW HAS A HEADACHE OF 10/10 WITH LIGHT SENSITIVTY. PRN TYLENOL WAS GIVEN. PT IS AAOX4, PUPILS ARE 2MM BUT NOT VERY REACTIVE TO LIGHT. NO WEAKNESS NOTED. V/S WERE WDL OVERALL WITH A LIGHTLY ELEVATED BP. WILL CONTINUE TO MONITOR. UPPER LOBES ARE CLEAR, LOWER LOBES ARE CLEAR BUT STILL DIMINISHED. THERE IS HOWEVER MORE AIR MOVEMENT PRESENT THIS SHIFT. RLE IS STILL WARM BUT ALSO BETTER WITH PEDIS PULSE +2. PT IS STILL ON MENSES.
--- NOTE | 2020-02-11 07:33 | NUR ---
REPORT RECIEVED FROM COFFEE URN ATTENDANT RNTESSY.
--- NOTE | 2020-02-11 08:17 | NUR ---
MORNING ASSESSMENT DONE. PATIENT REPORTS THAT HEADACHE IS RESOLVED AFTER TYLENOL, RIGHT CALF PAIN IS 3/10, PLAN TO GIVE PAIN MEDICATIONS BEFORE PHYSICAL THERAPY. PATIENT IS ON ROOM AIR AT REST, LUNG BASES CONTINUE TO BE DIM. MORNING MEDICATIONS GIVEN WITH BREAKFAST. PATIENT DENIES OTHER NEEDS AT THIS TIME.
--- NOTE | 2020-02-11 09:36 | NUR ---
Verbal order Dr. Bansal/ Liz Rothman RN, to DC IV. IV DC'd. PRN analgesic given. Denies other needs.
--- NOTE | 2020-02-11 12:06 | NUR ---
PATIENT UP TO SHOWER, FEELING BETTER. PATIENT BELIEVES THAT THE P.O. DOSE OF IRON THIS MORNING GAVE HER DIARRHEA. PATIENT ENCOURAGED TO AMBULATE IN HALLWAY TID.
--- NOTE | 2020-02-11 14:23 | NUR ---
PATIENT RESTING IN BED, DENIES NEEDS.
--- NOTE | 2020-02-11 16:42 | NUR ---
PATIENT IS RESTING IN BED, DENIES NEEDS AT THIS TIME.
--- NOTE | 2020-02-11 19:30 | NUR ---
RECEIVED REPORT AT 1900, PT WAS AWAKE IN BED. PT HAD NO NEEDS AT THAT TIME.
--- NOTE | 2020-02-11 20:30 | NUR ---
V/S WDL OVERALL, UPPER LOBES CLEAR, LOWER LOBES DIMINISHED BUT AGAIN THEY HAVE MORE AIR MOVEMENT THAN LAST NIGHT. PT IS TOLERATING EXERTION BETTER ALSO. RLE AT THIS TIME IS NOT PAINFUL ANYMORE WHNE PT WALKES WAS STATED BY PT. RLE IS ONLY SLIGHTLY MORE WARM THAN HER LLE. NO NEW CONCERNS WERE NOTED SO FAR.
--- NOTE | 2020-02-11 21:05 | NUR ---
BINDERY PRODUCTION MANAGER ROUNDING NOTE. PT RESTINGIN BED. DENIES QUESTIONS OR CONCERNS AT THIS TIME. WEBSPHERE COMMERCE ARCHITECT AND MARKETING OPERATIONS ANALYST IN ROOM FOR VITALS AND I&0. ICE PROVIDED PER PT REQUEST. PT EXPRESSES EXCITEMENT THAT SHE WILL GET TO GO BACK HOME SOON. CALL LIGHT IN REACH. WHITE BOARD UPDATED.
--- NOTE | 2020-02-11 23:45 | NUR ---
PT CALLLED OUT AT ABOUT 2300. PT WAS IN THE BATHROOM AND NEEDED FRESCH CLOTHING. PT HAS A LARGE AMOUNT OF BLOOD FROM HER MENSES WITH SEVERAL LARGER BLOOD CLOTS PRESENT IN THE TOILET. WHEN PT RETURNED TO BED HER HR WAS ABOUT 115, O2 SATS WERE 100% ON RA. PT ALSO STATED THAT SHE IS HAVING THE FEELING THAT THERE IS SOMETHING STUCK IN HER LUNG AND A SENSE OF IMPENDING DOOM. I TALKED TO PT FOR A LONG WHILE TO GIVE HER COMFORT AND CALM.
--- NOTE | 2020-02-12 01:46 | NUR ---
PT AT THIS TIME IS SLEEPING. WILL CONTINUE TO MONITOR.
--- NOTE | 2020-02-12 04:30 | NUR ---
PT IS SLEEPING AT THIS TIME. NO NEW CONCERNS NOTED.
--- NOTE | 2020-02-12 05:21 | NUR ---
AT AROUND 2300 PT HAD AN EPISODE OF A LARGE AMOUNT OF MENSES WITH CLOTS. PT DENIED DIZZINESS WHILE STANDING AND SHOWERING. OTHERWISE PT HAD AN UNEVENTFUL NIGHT OVERALL. UPPER LOBES ARE CLEAR, LOWER LOBES ARE STILL DIMINISHED. RLE AT TIMES IS STILL PAINFUL. SKIN ON RLE IS NOT HOT ANYMORE. TRACE EDEMA IS STILL PRESENT AND PEDIS PULSES ARE +2. PT AT TIMES GETS ANXIOUS ABOUT HER CONDITION AND THE TRAVELING HOME PART. WITH SOME ENCOURAGEMENT PT USUALLY CALMS.
--- NOTE | 2020-02-12 07:17 | NUR ---
Report from Shashi Schafer RN. Patient resting in bed with eyes closed. Respirations even and unlabored. Allowed to rest at this time.
--- NOTE | 2020-02-12 11:32 | NUR ---
Denies needs at this time. Sitting on couch in room, packing clothing. States she is feeling well at this time. Some shortness of breath noted with exertion. States she not effecting her at this time.
--- NOTE | 2020-02-12 14:45 | NUR ---
Sitting up in bed. Ice water provided and warm blanket provided. Denies other needs. Call light in reach, bed rails up X2.
--- NOTE | 2020-02-12 17:57 | NUR ---
Ambulates in hallway today on room air. Decrease in labored respirations with ambulation noted. Uses cane when up ambulating. Right leg remains with edema and occasional pain, warm to touch, no longer hot. Continues on PO Xarelto. Remains on menses at this time. TOlerates Iron and vitamin C today without issues.
--- NOTE | 2020-02-12 19:45 | NUR ---
LOBES ARE CLEAR BUT DIMINISHED IN THE BASES ABOUT THE SAME LAST NIGHT. PT DENIES PAIN AT THIS TIME. MENSES STILL UNCHANGED AT THIS TIME. PT OVERALL LOOKS MORE OPTIMISTIC ABOUT HER SITUATION. PT ALSO STATED THAT SHE WAS FEELING STRONGER OVERALL WITH LESS DYSPNEA WHEN WALKING. RLE IS WARM TO TOUCH THE SAME HER LLE. TRACE EDEMA PRESENT ON RLE, PEDIS PULSES +2. NO NEW CONCERNS WERE NOTED SO FAR.
--- NOTE | 2020-02-12 22:04 | NUR ---
PT AT THIS TIME IS RESTING IN BED.
--- NOTE | 2020-02-13 01:00 | NUR ---
PT IS SLEEPING AT THIS TIME.
--- NOTE | 2020-02-13 04:32 | NUR ---
PT AT THIS TIME IS STILL SLEEPING. NO NEW CONCERNS WERE NOTED.
--- NOTE | 2020-02-13 06:23 | NUR ---
PT OVERALL HAD AN UNEVENTFUL NIGHT. LOWER LOBES ARE STILL DIMINISHED. RLE IS WARM TO TOUCH BUT NOT HOT. PEDIS PULSES +2, TRACE EDEMA IS STILL PRESENT. NO NEW CONCERNS WERE NOTED THIS SHIFT.
--- NOTE | 2020-02-13 07:28 | NUR ---
REPORT RECIEVED. PATIENT AWAKE AND ALERT IN BED. RESPIRATIONS EVEN AND UNLABORED. CALL LIGHT WITHIN REACH. WATER FILLED. NO FURTHER REQUESTS.
--- NOTE | 2020-02-13 08:00 | NUR ---
Booked room for Radha and her son at [facility] for Feb 12-.
--- NOTE | 2020-02-13 08:06 | NUR ---
PATIENT IS AWAKE IN BED. INDEPENDENT IN ROOM. OPENED WINDOW FOR PATIENT WITH PLANS OF ORGANIZING LUGGAGE LATER TODAY. WHITE BOARD UPDATED. CALL LIGHT WITHIN REACH. NO FURTHER NEEDS AT THIS TIME.
--- NOTE | 2020-02-13 09:50 | NUR ---
PATIENT UP TO COUCH. MEDS GIVEN. ASSESSMENT COMPLETE. LUNGS CLEAR. SOME SOB ON EXERTION. RT LEG SWOLLEN WITHOUT REDNESS. SAO2 100%. NO REQUESTS AT THIS TIME.
--- NOTE | 2020-02-13 11:19 | NUR ---
PATIENT GIVEN TYLENOL FOR PAIN 11/13. PATIENT STATES SHE DOESN'T WANT ANY STRONGER PAIN MEDS. FEMININE PADS GIVEN FOR MENSES. ICE WATER GIVEN. NO FURTHER REQUESTS.
--- NOTE | 2020-02-13 12:30 | NUR ---
Completed itinerary for pt and her son. Pt will dc today to [facility] Son will arrives Tues by plane, [employer] van will pick him up at 0927 pm. Pt and son will be able to ear breakfast and dinner at [facility]. Marsha WOLFF arranged for Raoul Mata to deliver meals to pt and son daily at [facility]. Spoke with [facility] and they have agreed for an additonal $50.00 Pt make check out later in the day, as her train does not leave from [facility] until 0857pm. Taxi scheduled and paid to transport pt and her son to [place], [place] at 6 pm on 02/17. Pt's [employer] train will leave at 0857 pm for [facility], and then [facility]. To room and reviewed the above Itinerary and gave pt a packet with typed schedule and copy of son's e ticket, [facility] receipt, phone number for Taxi, [employer] Itinerary and Etickets. Notified pt, we are awaiting a gift card for food on the train and on Thursday [employer] will deliver Visa cards and backpack with food for pt and son. See Itinerary Itinerary Gladis Alger February 12-- February 17 [facility] [place], [place] [phone] February 13 [facility]avian will arrive February 13 at 09:27 pm and [employer] will pick up and delivery driver. He needs to look for the [employer] van and show ID. [facility] will deliver lunch to you daily to the administrative assistant front desk at [facility] around 11:30 am February 17, 6 pm Taxi to [place], [place] to Pay with a [employer]weet station. ([facility] has agreed to a late check out for you) Your taxi ride is scheduled. [employer] [phone] February 17 [phone] [facility] will provide you with a Visa gift card for food and a cooler with snacks for the train. Marsha Jacques will bring food and gift card around 10:00 am on Sat. If you need anything, please do not hesitate to call. Geetha Patel [phone] W Cell
--- NOTE | 2020-02-13 13:22 | NUR ---
PATIENT UP TO COUCH. STATES PAIN IS "ALOT BETTER" AT 3/10 IN THE RIGHT LEG. PATIENT IS PACKING HER THINGS FOR DISCHARGE.
[2020-02-13] MEDS ORDERED: XARELTO20 MG PO (13:39)
[2020-02-13] MEDS ORDERED: FERROUS SULFAT325 MG PO (13:39)
[2020-02-13] MEDS ORDERED: XARELTO15 MG PO (13:39)
[2020-02-13] MEDS ORDERED: VITAMIN C250 MG PO (13:39)
--- NOTE | 2020-02-13 14:05 | NUR ---
PATIENT UP IN ROOM PACKING BAGS. CALL LIGHT WITHIN REACH. NO FURTHER NEEDS AT THIS TIME.
--- NOTE | 2020-02-13 14:12 | NUR ---
PT ALERT, ORIENTED AND PREPARING FOR DC LATER TODAY. PT EMOTIONAL S SHE BEGAN TO EXPLAIN SOME FAMILY ISSUES THAT HAVE COME TO LIGHT. GAVE ENCOURAGEMENT AND COMFORT.PT ACCEPTED BIBLE, G.POSTS AND OTHER MATERIAL TO READ AND USE ON TRIP HOME. WORKING WITH [facility] FOR FINANCIAL ASSISTANCE FOR PT'S TRIP HOME WELL. PT REQUESTED PRAYER, WILL FOLLOW NEEDED AND COORDINATED WITH CM.
--- NOTE | 2020-02-13 14:25 | NUR ---
Binta Moreno will pickling grader patient's Xarelto RX and OTC Iron/Vit C at [facility] and deliver to patient prior to discharge
--- NOTE | 2020-02-13 15:00 | NUR ---
Spoke with Radha, she plans on staying for dinner and then discharging by taxi to the Hotel. She denies further needs. Reminded my phone number is on the itinerary and she can call for any needs.
--- NOTE | 2020-02-13 16:20 | NUR ---
PATIENT RESTING IN BED. DISCHARGE INSTRUCTIONS GIVEN. PATIENT CRIES AND EXPRESSES CONCERNS AND WORRIES ABOUT HER HEALTH AND ABILITLY TO SUPPORT HERSELF AND HER FAMILY. EMOTIONAL SUPPORT AND ENCOURAGEMENT PROVIDED. PATIENT CALMS DOWN AND APPEARS TO FEEL MORE EMPOWERED AND ENCOURAGED. NO FURTHER REQUESTS.
--- NOTE | 2020-02-13 17:33 | NUR ---
PATIENTS LAST SET OF VITALS COMPLETE. RIDE ON THE WAY. CALL LIGT WITHIN REACH. NO FURTHER NEEDS AT THIS TIME.
--- NOTE | 2020-02-14 12:08 | NUR ---
Called and checked on pt, [facility] [employer]. She denies any needs.
== END 2020-02-13 17:56 | disposition home or self-care (01) | DRG 175 ==
LOC: ED 08:30 → CCU 13:48 → MS 13:48
PROVIDERS: ADMIT Student in an Organized Health Care Education/Training Program; ATTEND Student in an Organized Health Care Education/Training Program
DX: I26.09 Other pulmonary embolism with acute cor pulmonale (principal); J96.01 Acute respiratory failure with hypoxia; D62 Acute posthemorrhagic anemia; Z68.43 Body mass index [BMI] 50.0-59.9, adult; Z20.828 Contact with and (suspected) exposure to other viral communicable diseases; I50.811 Acute right heart failure; N92.0 Excessive and frequent menstruation with regular cycle; E66.01 Morbid (severe) obesity due to excess calories; K27.9 Peptic ulcer, site unspecified, unspecified as acute or chronic, without hemorrhage or perforation; I07.1 Rheumatic tricuspid insufficiency; I51.89 Other ill-defined heart diseases; Z87.891 Personal history of nicotine dependence
CPT/HCPCS: 36415; 71045; 71260; 80048; 80053; 81001; 83690; 83735; 84484; 84703; 85018; 85025; 85379; 85610; 85730; 86850; 86900; 86901; 86920; 93005; 93010; 93306; 94760; 97110; 97116; 97162; 97165; 97530; 99285-25; C9113; C9803; J1650; J1885; J7121; Q9967; U0003